=== PATIENT | female | born 1960 | race Caucasian/White ===

== ENCOUNTER 2017-01-07 09:34 | Inpatient (IN) ==
--- NOTE | 2017-01-07 10:00 | EKG Report ---
Test Performed on : 01/07/2017 09:39:00 AM Test Reason : chest pain Blood Pressure : / mmHG Vent. Rate : 095 BPM Atrial Rate : 095 BPM P-R Int : 150 ms QRS Dur : 110 ms QT Int : 390 ms P-R-T Axes : 078 -78 079 degrees QTc Int : 490 ms Normal sinus rhythm. Biatrial enlargement Left axis deviation Incomplete right bundle branch block Septal infarct , age undetermined Abnormal ECG No previous ECGs available Unconfirmed Result
[2017-01-07] MEDS ORDERED: ASPIRIN PO STA (10:09)
[2017-01-07 10:26] LABS: MANUAL DIFF NEEDED? NO
[2017-01-07 10:32] LABS: BASO% 0.4 % (0.0-0.8); EOS# 0.07 X1000 (0.0-0.7); EOS% 0.9 % (0.0-10.0); HEMATOCRIT 48.2 % (37.0-47.0); HEMOGLOBIN 16.7 g/dL (12.0-16.0); LYMPH# 1.81 X1000 (1.2-3.4); LYMPH% 22.5 % (20.5-51.1); MCH 32.8 PG (27-31); MCHC 34.6 g/dL (33-37); MCV 94.7 FL (81-99); MONO# 0.56 X1000 (0.11-0.59); MONO% 6.9 % (1.7-9.3); MPV 9.8 FL (7.4-10.4); NEUT% 69.3 % (42.2-75.2); PLT 221 X1000 (130-400); RBC 5.09 XMIL (4.2-5.4)
--- NOTE | 2017-01-07 10:34 | Diag Imaging Result Doc PS360 ---
CHEST-PORTABLE - 01/07/2017 INDICATION: CP TECHNIQUE: COMPARISON: 05/07/2015 FINDINGS: The lungs are normally expanded and clear. Heart size and mediastinal contours are normal. No pneumothorax or pleural effusion. IMPRESSION: Negative exam. Electronically signed by Peter Real 01/07/2017 10:32 AM
[2017-01-07] MEDS ORDERED: NITROGLYCERIN SL ONE (10:39)
[2017-01-07] MEDS ORDERED: G.I. COCKTAIL ONE (10:42)
[2017-01-07 10:43] LABS: INR 1.03; PROTIME 10.8 Seconds (9.2-11.7); PTT 27.3 Seconds (22.0-36.0)
[2017-01-07] MEDS ORDERED: G.I. COCKTAIL PO ONE (10:47)
[2017-01-07 10:54] LABS: AGAP 15; ALBUMIN 4.3 g/dL (3.5-5.0); ALKALINE PHOSPHATASE 73 U/L (32-104); BUN 9 mg/dL (8-22); CALCIUM 9.4 mg/dL (8.8-10.2); CHLORIDE 95 mmol/L (98-107); CK PROFILE 59 U/L (24-173); COSMO 285; GOT 16 U/L (10-30); GPT 8 U/L (10-36); MAGNESIUM 1.6 mg/dL (1.5-2.7); POTASSIUM 4.3 mmol/L (3.5-5.1); SODIUM 137 mmol/L (136-145); TCO2 27 mmol/L (25-35); TOTAL PROTEIN 7.4 g/dL (6.3-8.3)
[2017-01-07 12:29] LABS: URINE CULTURE NEEDED? NO; URINE MICRO REVIEW NEEDED? NO; URINE SOURCE CLEAN CATCH
[2017-01-07 12:37] LABS: UR EPITHELIAL CELLS <10 /HPF (<10); URINE BACTERIA NEGATIVE /HPF; URINE RBC <10 /HPF (<10); URINE WBC <10 /HPF (<10)
[2017-01-07 12:49] LABS: UR AMPHETAMINES QUAL NONE DETECTED (NONE DETECT); UR BARBITUATES QUAL NONE DETECTED (NONE DETECT); UR BENZODIAZEPIN QUAL NONE DETECTED (NONE DETECT); UR CANNABINOIDS QUAL NONE DETECTED (NONE DETECT); UR COCAINE QUAL NONE DETECTED (NONE DETECT); UR METHADONE QUAL NONE DETECTED (NONE DETECT); UR OPIATES QUAL NONE DETECTED (NONE DETECT); UR OXYCODONE QUAL NONE DETECTED (NONE DETECT); UR PCP QUAL NONE DETECTED (NONE DETECT)
[2017-01-07 12:53] LABS: BILIRUBIN URINE NEGATIVE (NEGATIVE); BLOOD URINE NEGATIVE (NEGATIVE); COLOR YELLOW; GLUCOSE URINE >1000 mg/dL (NEGATIVE); LEUKOCYTES URINE NEGATIVE (NEGATIVE); NITRITE URINE NEGATIVE (NEGATIVE); PH URINE 6.5; PROTEIN URINE NEGATIVE (NEGATIVE); TURBIDITY URINE CLEAR (CLEAR); UROBILINOGEN URINE NORMAL (NORMAL)
--- NOTE | 2017-01-07 13:26 | ED EKG INTERP ---
This chart was entered by Dai Saunders Scribe, acting as scribe for Jase Perdomo MD. EKG Interpretation - EKG Time of EKG reading by physician:: 09:39 EKG Read and Signed by:: Jase Perdomo EKG Interpretation (*Must complete 3 of following elements*): Abnormal Rate: 95 Rhythm: nsr [employer]: left (deviation) QRS: RBB (incomplete) ST Wave: normal Comments: septal infarct This chart was documented by the indicated scribe, (Dai Saunders Scribe) and accurately reflects the services I performed and decisions made by meConor Wenli X, MD, as attested by the provider's signature.
[2017-01-07] MEDS ORDERED: ZOFRAN IV ONE (13:27)
[2017-01-07] MEDS ORDERED: MORPHINE IV ONE (13:27)
--- NOTE | 2017-01-07 13:30 | PROVIDER DOCUMENTATION ---
This chart was entered by Dai Saunders Scribe, acting as scribe for Jase Perdomo MD. HPI-Chest Pain - General Chief Complaint: Chest Pain Stated Complaint: cp Time Seen by Provider: 01/07/17 10:07 Source: patient Allergies/Adverse Reactions: Patient Allergies Allergy/AdvReac Type Severity Reaction Status Date / Time Sulfa (Sulfonamide Allergy Unknown Verified 05/07/15 12:51 Antibiotics) Home Medications: Home Medication List Medication Instructions Recorded Confirmed Last Taken Type Hydrocodone/APAP 5 mg/325 mg 1 each PO Q6H PRN PRN #14 tablet 05/07/15 01/07/17 Unknown Rx [[place]-5] - History of Present Illness-CP Nature of Presenting Problem: 56 y/o F presents to ED cc of substernal chest pain. Pt states this onset yesterday afternoon. Pt states this morning the pain started radiating up R jaw. Pt states yesterday she did have a stressful day at work. Pt reports [place] runs in the family. Pt states this am she became nauseated and SOB. Pt denies any ABD PAIN/ GERD/ VOMITING. Pt is alert and oriented. Pt has no history of cardiac. Location: reports: substernal Chest Pain Radiation: reports: jaw (R) Quality of Pain: reports: aching Severity in ED: mild Onset/Duration: just prior to arrival Timing: gone now (on exam) Context/Activities at Onset: reports: light activity Modifying Factors: improves with: analgesics Associated Symptoms: reports: nausea, shortness of breath. denies: abdominal pain, back pain, fever/chills, headache, syncope, vomiting Nitro Today/Relief: provided by ED Aspirin Treatment Today: provided by ED Prior Chest Pain/Cardiac Workup: reports: no prior chest pain, no prior cardiac workup Similar Symptoms Previously?: No Recently Seen Here or By Another Healthcare Provider: No Review of Systems - Adult - REVIEW OF SYSTEMS - ADULT Constitutional: denies: chills, fever Ears, Nose, Mouth & Throat: denies: ear pain, nose pain Cardiovascular: reports: chest pain. denies: palpitations Respiratory: reports: chronic cough, shortness of breath. denies: pleurisy, wheezing Gastrointestinal: reports: nausea. denies: abdominal pain, diarrhea, vomiting Genitourinary: denies: dysuria, discharge, frequency, hematuria Musculoskeletal: denies: bone pain, back pain Neurological: denies: dizziness/vertigo, headache/migraines Past History - Adult - PAST MEDICAL HISTORY-ADULT Review of Records: reports: Old Records Reviewed, Nursing Assessment Review Cardiovascular: reports: HTN - IMMUNIZATION STATUS Childhood Immunizations: See Nurse Assessment Flu Vaccine: See Nurse Assessment - FAMILY HISTORY Family History: reviewed, not pertinent - SOCIAL HISTORY Smoking: greater than 1 pack/day Provider spent 3-5 mins advising pt. on dangers of tobacco.: Discussed manners to quit use, and f/u contacts for add'l counseling. Substance Use: denies Physical Exam-General - PHYSICAL EXAM-ADULT Initial Vital Signs Reviewed: Yes - CONSTITUTIONAL General Appearance: appears well, alert, thin - EYES Eyes: pink conjunctivae - HEAD, EARS, NOSE, MOUTH & THROAT HENMT: moist mucous membranes, normal ENT inspection - NECK Neck: non-tender - RESPIRATORY Respiratory: chest non-tender, lungs clear, normal breath sounds - CARDIOVASCULAR Cardiovascular: normal peripheral pulses, no edema, no gallop, no JVD, no murmur , tachycardia - GASTROINTESTINAL (ABDOMEN) Abdominal Exam: normal bowel sounds, non tender, soft - LYMPHATIC Lymphatic: no adenopathy - MUSCULOSKELETAL Back Exam: no CVA tenderness, no vertebral tenderness Extremity: normal range of motion, non-tender, normal gait - SKIN Integumentary: normal color, normal turgor, warm/dry - NEUROLOGIC Neurologic: grossly normal, no motor/sensory deficits. negative: facial droop, focal weakness, motor weakness - PSYCHIATRIC Psych/Mental Status: oriented x 3 Progress - PLAN OF CARE/RESULTS Progress/Plan/Lab Results: Vital Signs - 8 hr 01/07/17 09:49 01/07/17 11:00 Temperature 97.8 F Pulse Rate 99 H 90 Respiratory Rate 20 24 Blood Pressure 162/95 137/85 O2 Sat by Pulse Oximetry 100 95 Laboratory Results - last 24 hr 01/07/17 01/07/17 01/07/17 10:09 10:09 10:09 WBC 8.06 RBC 5.09 Hgb 16.7 H Hct 48.2 H MCV 94.7 MCH 32.8 H MCHC 34.6 RDW Std Deviation 12.1 Plt Count 221 MPV 9.8 Immature Gran % (Auto) 0.0 Neut % (Auto) 69.3 Lymph % (Auto) 22.5 [place] % (Auto) 6.9 Eos % (Auto) 0.9 Baso % (Auto) 0.4 Immature Gran # (Auto) 0.00 Neut # (Auto) 5.59 Lymph # (Auto) 1.81 [place] # (Auto) 0.56 Eos # (Auto) 0.07 Baso # (Auto) 0.03 PT INR PTT (Actin FS) D-Dimer 0.16 Sodium 137 Potassium 4.3 Chloride 95 L Carbon Dioxide 27 Anion Gap 15 BUN 9 Creatinine 0.6 Estimated GFR/1.73 m2 > 60 BUN/Creatinine Ratio 15 Glucose 319 H Calculated Osmolality 285 Calcium 9.4 Magnesium 1.6 Total Bilirubin 0.70 AST 16 ALT 8 L Alkaline Phosphatase 73 Creatine Kinase 59 Troponin T Cfl-C-Cagfmrvwlfc Pept Total Protein 7.4 Albumin 4.3 Globulin 3.1 Albumin/Globulin Ratio 1.4 Urine Source Urine Color Urine Turbidity Urine pH Ur Specific [place] Urine Protein Ur Glucose (Stick) Ur Ketones (Stick) Urine Blood Urine Nitrite Urine Bilirubin Urobilinogen Dipstick Urine Leukocytes Urine WBC (Auto) Urine RBC (Auto) U Epithel Cells (Auto) Urine Bacteria (Auto) Urine Opiates Screen Ur Oxycodone Screen Ur Methadone, Qual Ur Barbiturates Screen Ur Phencyclidine Scrn Ur Amphetamines Screen U Benzodiazepines Scrn Urine Cocaine Screen U Cannabinoids Screen 01/07/17 01/07/17 01/07/17 10:09 10:09 10:09 WBC RBC Hgb Hct MCV MCH MCHC RDW Std Deviation Plt Count MPV Immature Gran % (Auto) Neut % (Auto) Lymph % (Auto) [place] % (Auto) Eos % (Auto) Baso % (Auto) Immature Gran # (Auto) Neut # (Auto) Lymph # (Auto) [place] # (Auto) Eos # (Auto) Baso # (Auto) PT 10.8 INR 1.03 PTT (Actin FS) 27.3 D-Dimer Sodium Potassium Chloride Carbon Dioxide Anion Gap BUN Creatinine Estimated GFR/1.73 m2 BUN/Creatinine Ratio Glucose Calculated Osmolality Calcium Magnesium Total Bilirubin AST ALT Alkaline Phosphatase Creatine Kinase Troponin T 0.020 Npa-E-Ezpexgkyhcj Pept 443 H Total Protein Albumin Globulin Albumin/Globulin Ratio Urine Source Urine Color Urine Turbidity Urine pH Ur Specific [place] Urine Protein Ur Glucose (Stick) Ur Ketones (Stick) Urine Blood Urine Nitrite Urine Bilirubin Urobilinogen Dipstick Urine Leukocytes Urine WBC (Auto) Urine RBC (Auto) U Epithel Cells (Auto) Urine Bacteria (Auto) Urine Opiates Screen Ur Oxycodone Screen Ur Methadone, Qual Ur Barbiturates Screen Ur Phencyclidine Scrn Ur Amphetamines Screen U Benzodiazepines Scrn Urine Cocaine Screen U Cannabinoids Screen 01/07/17 01/07/17 01/07/17 12:18 12:18 12:18 WBC RBC Hgb Hct MCV MCH MCHC RDW Std Deviation Plt Count MPV Immature Gran % (Auto) Neut % (Auto) Lymph % (Auto) [place] % (Auto) Eos % (Auto) Baso % (Auto) Immature Gran # (Auto) Neut # (Auto) Lymph # (Auto) [place] # (Auto) Eos # (Auto) Baso # (Auto) PT INR PTT (Actin FS) D-Dimer Sodium Potassium Chloride Carbon Dioxide Anion Gap BUN Creatinine Estimated GFR/1.73 m2 BUN/Creatinine Ratio Glucose Calculated Osmolality Calcium Magnesium Total Bilirubin AST ALT Alkaline Phosphatase Creatine Kinase 77 Troponin T Jhh-P-Ventdprjfbh Pept Total Protein Albumin Globulin Albumin/Globulin Ratio Urine Source CLEAN CATCH Urine Color YELLOW Urine Turbidity CLEAR Urine pH 6.5 Ur Specific [place] 1.040 Urine Protein NEGATIVE Ur Glucose (Stick) >1000 A Ur Ketones (Stick) 80 A Urine Blood NEGATIVE Urine Nitrite NEGATIVE Urine Bilirubin NEGATIVE Urobilinogen Dipstick NORMAL Urine Leukocytes NEGATIVE Urine WBC (Auto) <10 Urine RBC (Auto) <10 U Epithel Cells (Auto) <10 Urine Bacteria (Auto) NEGATIVE Urine Opiates Screen NONE DETECTED Ur Oxycodone Screen NONE DETECTED Ur Methadone, Qual NONE DETECTED Ur Barbiturates Screen NONE DETECTED Ur Phencyclidine Scrn NONE DETECTED Ur Amphetamines Screen NONE DETECTED U Benzodiazepines Scrn NONE DETECTED Urine Cocaine Screen NONE DETECTED U Cannabinoids Screen NONE DETECTED 01/07/17 12:18 WBC RBC Hgb Hct MCV MCH MCHC RDW Std Deviation Plt Count MPV Immature Gran % (Auto) Neut % (Auto) Lymph % (Auto) [place] % (Auto) Eos % (Auto) Baso % (Auto) Immature Gran # (Auto) Neut # (Auto) Lymph # (Auto) [place] # (Auto) Eos # (Auto) Baso # (Auto) PT INR PTT (Actin FS) D-Dimer Sodium Potassium Chloride Carbon Dioxide Anion Gap BUN Creatinine Estimated GFR/1.73 m2 BUN/Creatinine Ratio Glucose Calculated Osmolality Calcium Magnesium Total Bilirubin AST ALT Alkaline Phosphatase Creatine Kinase Troponin T 0.045 D Djt-P-Nxfmofqryml Pept Total Protein Albumin Globulin Albumin/Globulin Ratio Urine Source Urine Color Urine Turbidity Urine pH Ur Specific [place] Urine Protein Ur Glucose (Stick) Ur Ketones (Stick) Urine Blood Urine Nitrite Urine Bilirubin Urobilinogen Dipstick Urine Leukocytes Urine WBC (Auto) Urine RBC (Auto) U Epithel Cells (Auto) Urine Bacteria (Auto) Urine Opiates Screen Ur Oxycodone Screen Ur Methadone, Qual Ur Barbiturates Screen Ur Phencyclidine Scrn Ur Amphetamines Screen U Benzodiazepines Scrn Urine Cocaine Screen U Cannabinoids Screen Orders Category Date Time Status Cardiac Monitoring DIRECTED Care 01/07/17 10:09 Active Saline Loc NOW Care 01/07/17 10:09 Active CHEST-PORTABLE [RAD] Stat Exams 01/07/17 10:09 Completed CBC WITH ELECTRONIC DIFF [HEME] Stat Lab 01/07/17 10:09 Completed CK PROFILE [SP CHEM] Stat Lab 01/07/17 10:09 Completed CK PROFILE [SP CHEM] Stat Lab 01/07/17 12:18 Completed COMPREHENSIVE METABOLIC PANEL [CHEM] Stat Lab 01/07/17 10:09 Completed D-DIMER [CHEM] Stat Lab 01/07/17 10:09 Completed MAGNESIUM [CHEM] Stat Lab 01/07/17 10:09 Completed PRO B-NATRIURETIC PEPTIDE Stat Lab 01/07/17 10:09 Completed PROTIME WITH INR [COAG] Stat Lab 01/07/17 10:09 Completed PTT [COAG] Stat Lab 01/07/17 10:09 Completed TROPONIN T Stat Lab 01/07/17 10:09 Completed TROPONIN T Stat Lab 01/07/17 12:18 Completed UA NIMS W/REFLEX CULT [URINALYSIS] Stat Lab 01/07/17 12:18 Completed URINE DRUG SCREEN Stat Lab 01/07/17 12:18 Completed Aspirin Med 01/07/17 10:09 Discontinued 325 mg PO STAT STA Lido/Patiño Alk/Al&mg Hydrox [G.i. Cocktail] Med 01/07/17 10:42 Discontinued 30 ml .ROUTE .STK-MED ONE Lido/Patiño Alk/Al&mg Hydrox [G.i. Cocktail] Med 01/07/17 10:47 Discontinued 30 ml PO NOW ONE Nitroglycerin Sl [Nitroglycerin] Med 01/07/17 10:39 Discontinued 0.4 mg SL NOW ONE EKG [EKG] Stat Ther 01/07/17 09:41 Active EKG [EKG] Stat Ther 01/07/17 10:09 Draft [PLAN: LABS , EKG, MONITOR PT. Result Diagrams: 01/07/17 10:09 01/07/17 10:09 - REASSESSMENT Reassessment #1 Time Reassessed: 13:27 Status: unchanged (Pt still c/o retrosternal pain after GI cocktail. IV Morphine ordered. Will admit.) - XRAY 1 XRAY: Bilateral XRAY Study: Chest Impression: Normal XRAY Interpretation: NEGATIVE EXAM -Dr. Real(radiologist) - CONSULTS/PCP/HOSPITALIST Notification Time Discussed: 13:28 Reason/Comments: Admit to hospitalist Consult Disposition: Admit Departure - Departure Time of Disposition Decision: 13:29 DIAGNOSIS: Chest pain Qualifiers: Chest pain type: unspecified Qualified Code(s): R07.9 - Chest pain, unspecified Disposition: ADMITTED INPATIENT 09 Certified Medical Emergency: Emergent Condition: Stable Referrals and Follow-Ups: None,PCP [Primary Care Provider] - - Critical Care Note This patient required my direct & personal management of CC.: No This chart was documented by the indicated scribe, (Dai Saunders Scribe) and accurately reflects the services I performed and decisions made by me, Jase Perdomo MD, as attested by the provider's signature.
[2017-01-07] MEDS ORDERED: NITROGLYCERIN TOP ONE (15:46)
[2017-01-07] MEDS ORDERED: APRESOLINE IV PRN (16:09)
[2017-01-07] MEDS ORDERED: TYLENOL PO PRN (16:09)
[2017-01-07] MEDS ORDERED: LOVENOX SUBQ SCH (16:09)
[2017-01-07] MEDS ORDERED: ZOFRAN IV PRN ×2 (16:09)
[2017-01-07 16:21] LABS: HEMOGLOBIN A1C 12.1 % (4.8-6.0)
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
[2017-01-07 17:57] LABS: CK INDEX 7.5 (0.0-2.5); CK-MB 23.02 ng/mL (0.0-5.0)
[2017-01-07] MEDS: PROTONIX IV SCH (18:07)
[2017-01-07] MEDS: M.V.I.-12 10 ML, FOLIC ACID 1 MG, MAGNESIUM SULFATE 1 GM, THIAMINE 100 MG in NS 1,000 ML IV SCH (18:07)
[2017-01-07] MEDS: SODIUM CHLORIDE 0.9% INJ SCH (18:07)
[2017-01-07] MEDS: DUONEB (A & A) INH SCH ×2 (19:36→23:09)
[2017-01-07] MEDS: HUMALOG SUBQ SCH (20:17)
[2017-01-07 22:14] LABS: CK INDEX 10.6 (0.0-2.5); CK-MB 62.11 ng/mL (0.0-5.0)
[2017-01-07] MEDS: ATIVAN IV PRN (23:43)
[2017-01-08 02:13] LABS: CK INDEX 10.4 (0.0-2.5); CK-MB 81.94 ng/mL (0.0-5.0)
[2017-01-08] MEDS: NS 1,000 ML IV SCH ×3 (03:00→19:15)
[2017-01-08] MEDS: DUONEB (A & A) INH SCH ×6 (03:52→23:38)
[2017-01-08 06:38] LABS: HEMATOCRIT 46.2 % (37.0-47.0); HEMOGLOBIN 15.8 g/dL (12.0-16.0); MCH 32.9 PG (27-31); MCHC 34.2 g/dL (33-37); MCV 96.3 FL (81-99); MPV 10.1 FL (7.4-10.4); RBC 4.8 XMIL (4.2-5.4)
[2017-01-08] MEDS: HUMALOG SUBQ SCH ×4 (06:44→20:11)
[2017-01-08] MEDS ORDERED: PRILOSEC PO SCH (07:00)
[2017-01-08 07:11] LABS: AGAP 16; BUN 10 mg/dL (8-22); CALCIUM 8.5 mg/dL (8.8-10.2); CHLORIDE 96 mmol/L (98-107); COSMO 278; POTASSIUM 3.8 mmol/L (3.5-5.1); SODIUM 135 mmol/L (136-145); TCO2 23 mmol/L (25-35)
[2017-01-08] MEDS ORDERED: LIPITOR PO ONE (07:31)
[2017-01-08] MEDS ORDERED: INSULIN PEN NEEDLES ONE (07:49)
[2017-01-08] MEDS: ASPIRIN PO SCH (08:18)
[2017-01-08] MEDS: LOPRESSOR PO SCH ×2 (08:19→20:12)
[2017-01-08] MEDS: LOVENOX SUBQ SCH ×2 (08:21→18:32)
[2017-01-08] MEDS: M.V.I.-12 10 ML, FOLIC ACID 1 MG, MAGNESIUM SULFATE 1 GM, THIAMINE 100 MG in NS 1,000 ML IV SCH (08:22)
[2017-01-08] MEDS ORDERED: LANTUS SUBQ SCH (09:00)
--- NOTE | 2017-01-08 13:51 | CONSULTATION ---
DATE OF CONSULTATION: 01/08/2017 INDICATION: Chest pain. HISTORY OF PRESENT ILLNESS: Ms. Gómez is a 56-year-old, white female, who has a history of tobacco use and hypertension who is currently not following with a primary care physician. She had an episode of chest discomfort which she described as an indigestion-type burning pain in the central chest area with radiation up into the right jaw. This began during a period of stress yesterday, but this was emotional stress and not physical stress. She was sedentary. Initially, she attempted to take a spoonful of mustard. This helped to the discomfort briefly for a few minutes. This helped the discomfort briefly for a few minutes. It resumed and then she took some antacids. Again, she had a brief resolution, but it persisted until she got to the ER after that. Subsequently, she has not had any other issues with chest pain since presentation. She is not short of breath. She continues to smoke and has a significant history of alcohol use. PAST MEDICAL HISTORY: 1. Significant for hypertension. 2. Tobacco abuse. 3. Alcohol abuse. SOCIAL HISTORY: She smokes around a pack a day, drinks around a pint of liquor. She is . is present. FAMILY HISTORY: She has a history of myocardial infarctions in both parents in mid 40s. REVIEW OF SYSTEMS: Ten system review of systems is negative except for those mentioned in the HPI. PHYSICAL EXAMINATION: Vital Signs: She is afebrile. Her heart rate has been anywhere from the 70s to the low 100s. Her blood pressure is 106/74. General: She is in no acute distress. HEENT: Oropharynx is moist. Normal dentition. Eye examination shows pink conjunctivae. White sclerae. Neck: Examination shows no obvious thyromegaly or thyroid tenderness. Cardiovascular: She is in a regular rate and rhythm. She has no murmurs. She has no S3. She has no lower extremity edema. Chest: Chest exam is clear bilaterally. No increased work of breathing. Abdomen: Soft, nontender, nondistended. She has no obvious organomegaly. Skin Exam: Warm and dry throughout any rashes. Neurological: She is moving all extremities well. Cranial nerves 2- 12 are intact without any sensation deficits. Psychiatric: Alert, oriented, and pleasant. She has normal mood and affect. PERTINENT DATA: She had an EKG checked at 9:39 a.m. yesterday showing sinus rhythm. No acute ischemic changes. She had a chest x-ray showing no acute processes. Her laboratory data has shown a white count of 9.2, hematocrit 46, platelet count 211,000. Sodium 135, potassium 3.8. Her BUN is 10, creatinine 0.5. Her glucose was 319 on presentation. Her A1c was 12.1. Troponin initially was 0.02 and subsequently has trended up to a peak of 2.34 this morning. Her albumin is 4.3. TSH is normal. ASSESSMENT: 1. Dld-XJ-imbehdzkq myocardial infarction. 2. New onset diabetes. 3. Hypertension. 4. Tobacco and alcohol abuse. PLAN: The patient has been counseled against tobacco and alcohol cessation. I agree with the medication she is currently on including the 1 mg/per kg Lovenox, aspirin, atorvastatin, metoprolol. I would continue on these medications presently as she seems to be pain free. We will plan for cardiac catheterization in the morning on Tuesday. Risks, benefits and alternatives explained to the patient. She agrees to proceed. Echocardiogram is currently pending. cc: Sami Easton MD
--- NOTE | 2017-01-08 14:56 | PROGRESS NOTE ---
DATE: 01/08/2017 SUBJECTIVE: This patient states that she is feeling better. She is a little bit anxious. She denies nausea, vomiting, diarrhea, constipation. Mild chest discomfort. OBJECTIVE: Vital Signs: Temperature 97.7 degrees, pulse 113, respiratory rate 20, blood pressure 113/78, oxygen saturation 98% on room air. HEENT: Head normocephalic. No trauma. PERRLA. Neck: Supple. No JVD. No masses. Central trachea. Chest: Clear to auscultation. No wheezing. No rales. Abdomen: Soft, nontender, nondistended. No hepatosplenomegaly. Cardiovascular: RRR. No murmurs. Extremities: No edema. No clubbing. No cyanosis. Neurological: The patient is alert and oriented x3. No focal deficits. LABORATORY: WBC 9.2, hemoglobin 15.8, hematocrit 46.2, platelets 211,000. Sodium 135, potassium 3.8, chloride 96, bicarbonate 23, BUN 10, creatinine 0.5, glucose 249, calcium 8.5. CK-MB 81.9. Troponin 2.3. ASSESSMENT AND PLAN: 1. Spm-IP-orwwnbxhz myocardial infarction. This patient was admitted yesterday because of chest pain and the troponin has been increasing slowly. Today, the troponins is more than 2. Cardiology Department has been consulted. We placed this patient on Lovenox twice a day, and also beta cristhian and statin. This patient is receiving also aspirin. At this moment, she looks stable. We will follow the recommendations of the Cardiology Department. 2. Hyperglycemia. We have a hemoglobin A1c that is more than 12, so this patient has uncontrolled diabetes. As per the patient, she never was told that she had diabetes, I started this patient on sliding scale insulin, pattern of blood sugar, and also I started this patient on Lantus 15. We will monitor the blood sugar. 3. Hypertension. Stable. We added beta cristhian to her medications, pending Cardiology recommendations. 4. Nicotine dependence. The patient has been highly advised to quit smoking. We have offered her a nicotine patch, but she refused. I will continue with daily cessation education. 5. Possible alcohol dependence. We will monitor closely for signs of withdrawal and have a p.r.n. Ativan. 6. Deep vein thrombosis prophylaxis. This patient is getting Lovenox twice a day. This patient is having a ade-UI-tyshxwclj myocardial infarction. The Cardiology Department has been consulted and I will try to transfer this patient to the [facility]. cc: Preet Milligan MD
--- NOTE | 2017-01-08 15:04 | ECHO REPORT ---
ORDER DATE: 01/07/2017 INDICATION FOR THE STUDY: Non ST elevation NC. FINDINGS: 1. Right atrium is normal size at 3.9 cm. 2. Trace tricuspid regurgitation. RV systolic pressure of 33. 3. Normal RV size and systolic function. 4. No significant pulmonic insufficiency. 5. Normal left atrial size at 2.9 cm. 6. No mitral prolapse. Trace mitral regurgitation. 7. Normal LV size, end-diastolic dimension of 3.5. Mild left ventricular hypertrophy with a posterior and interventricular septal wall thickness of 1.0 and 1.3 cm respectively. Normal LV systolic function. Estimated EF of 55%. On some views, there is a suggestion of mild inferolateral hypokinesis. 8. Aortic valve opens well. No evidence of stenosis or insufficiency. 9. Aorta appears normal visualized segments. 10. No pericardial effusion seen. cc: MD Eric Trujillo CRNP
[2017-01-08] MEDS: SODIUM CHLORIDE 0.9% INJ SCH (16:54)
[2017-01-08] MEDS: PROTONIX IV SCH (16:54)
[2017-01-08] MEDS: ATIVAN IV PRN (20:12)
[2017-01-09] MEDS: DUONEB (A & A) INH SCH ×6 (02:44→22:54)
[2017-01-09] MEDS: ATIVAN IV PRN ×2 (03:34→20:31)
[2017-01-09] MEDS: NS 1,000 ML IV SCH ×2 (03:34→20:32)
[2017-01-09 05:22] LABS: MANUAL DIFF NEEDED? NO
[2017-01-09 05:30] LABS: BASO% 0.3 % (0.0-0.8); EOS# 0.09 X1000 (0.0-0.7); EOS% 1.2 % (0.0-10.0); HEMATOCRIT 40.3 % (37.0-47.0); HEMOGLOBIN 13.7 g/dL (12.0-16.0); LYMPH# 1.91 X1000 (1.2-3.4); LYMPH% 25.9 % (20.5-51.1); MCH 32.5 PG (27-31); MCV 95.7 FL (81-99); MONO# 0.84 X1000 (0.11-0.59); MONO% 11.4 % (1.7-9.3); MPV 10.1 FL (7.4-10.4); NEUT% 61.2 % (42.2-75.2); PLT 179 X1000 (130-400); RBC 4.21 XMIL (4.2-5.4)
[2017-01-09 06:05] LABS: HDL 46 mg/dL (45-65); LDL 68 mg/dL; TRIGLYCERIDES 76 mg/dL (35-135); VLDL 15 mg/dL
[2017-01-09 06:07] LABS: AGAP 13; BUN 9 mg/dL (8-22); CALCIUM 8.4 mg/dL (8.8-10.2); CHLORIDE 102 mmol/L (98-107); COSMO 278; SODIUM 137 mmol/L (136-145); TCO2 22 mmol/L (25-35)
[2017-01-09] MEDS: LOVENOX SUBQ SCH ×3 (06:17→20:31)
[2017-01-09] MEDS: HUMALOG SUBQ SCH ×4 (06:17→21:51)
--- NOTE | 2017-01-09 09:20 | PROGRESS NOTE ---
DATE: 01/09/2017 SUBJECTIVE: This patient states that she is feeling fine. She is not complaining of chest pain at this moment. Family members at the bedside. OBJECTIVE: Vital Signs: Temperature 98.4 degrees, pulse 82, respiratory rate 16, blood pressure 100/70, oxygen saturation 100% on room air. HEENT: Head normocephalic. No trauma. PERRLA. Neck: Supple. No JVD. No masses. Central trachea. Chest: Clear to auscultation. No wheezing. No rales. Cardiovascular: RRR. No murmurs. Abdomen: Soft, nontender, nondistended. No hepatosplenomegaly. Extremities: No edema. No clubbing. No cyanosis. Neurological Examination: The patient is alert and oriented x3. No focal deficits. Laboratory Data: WBC 7.3, hemoglobin 13.7, hematocrit 40.3, platelets 179,000. Sodium 137, potassium 4, chloride 102, bicarbonate 22, BUN 9, creatinine 0.5, glucose 205, calcium 8.4, magnesium 1.5. ASSESSMENT AND PLAN: 1. Non-ST elevation myocardial infarction. This patient was admitted a couple days ago because of chest pain and the troponins have been increasing. Cardiology department evaluated this patient and they will do a cardiac catheterization on Tuesday. This patient has been placed nothing per oral after midnight. 2. Type 2 diabetes with a hemoglobin A1c greater than 12. The blood sugar is a little bit elevated today at 206. She received a little bit more, 30 units of sliding scale insulin. I will increase the Lantus from 15 to 30, and I will continue to monitor the blood sugar. 3. Hypertension, stable. Continue with the same medications. 4. Nicotine dependence and possible alcohol dependence. This patient has been highly advised about quitting these products. We will continue with daily cessation education. 5. Deep vein thrombosis prophylaxis. This patient is getting Lovenox twice a day because of the non-ST elevation myocardial infarction. CRITICAL CARE TIME: 35 minutes. cc: Preet Milligan MD
[2017-01-09] MEDS: M.V.I.-12 10 ML, FOLIC ACID 1 MG, MAGNESIUM SULFATE 1 GM, THIAMINE 100 MG in NS 1,000 ML IV SCH (09:55)
[2017-01-09] MEDS: LANTUS SUBQ SCH (09:56)
[2017-01-09] MEDS: LOPRESSOR PO SCH ×2 (09:56→20:31)
[2017-01-09] MEDS: ASPIRIN PO SCH (09:56)
[2017-01-09] MEDS: NICODERM PATCH TD SCH (09:59)
--- NOTE | 2017-01-09 13:48 | PROGRESS NOTE ---
DATE: 01/09/2017 SUBJECTIVE: She has not had any episodes of chest pain overnight. PHYSICAL EXAMINATION: Vital signs: She is afebrile. Heart rate of 78, blood pressure 103/68. General: No acute distress. Cardiovascular: She is in a regular rate and rhythm. She has no murmurs, no S3. She has no lower extremity edema. Chest: Clear bilaterally. No increased work of breathing. Abdomen: Soft, nontender, nondistended. No obvious organomegaly. PERTINENT DATA: Her troponin peaked at 3.86. Her white count is 7.4, hematocrit 40, platelet count is 179,000. Sodium 137, potassium 4, BUN 9, creatinine 0.5, magnesium level is 1.5. LDL is 68 with an HDL 46. ASSESSMENT: Non ST-elevation myocardial infarction. PLAN: We will proceed with left heart catheterization in the morning. Risks, benefits, and alternatives have been explained to the patient. She is on a statin, aspirin and beta-cristhian. Her blood pressure is not conducive to initiation of an EMELINA or an ARB at this time. She has been made n.p.o. after midnight. I will ensure she has routine labs ordered for the morning. I will replete her magnesium if this has not already been done. cc: Sami Easton MD
[2017-01-09] MEDS: SODIUM CHLORIDE 0.9% INJ SCH (16:29)
[2017-01-09] MEDS: PROTONIX IV SCH (16:29)
[2017-01-09] MEDS: LIPITOR PO SCH (20:31)
[2017-01-10] MEDS: DUONEB (A & A) INH SCH ×5 (02:48→18:56)
--- NOTE | 2017-01-10 05:39 | EKG Report ---
Test Performed on : 01/07/2017 11:05:51 PM Test Reason : Elevated Troponin Blood Pressure : / mmHG Vent. Rate : 088 BPM Atrial Rate : 088 BPM P-R Int : 154 ms QRS Dur : 094 ms QT Int : 402 ms P-R-T Axes : 077 -84 079 degrees QTc Int : 486 ms Normal sinus rhythm. Possible Left atrial enlargement Left axis deviation Incomplete right bundle branch block Nonspecific ST and T wave abnormality Prolonged QT Abnormal ECG When compared with ECG of 07-JAN-2017 09:39, QRS duration has decreased Criteria for Septal infarct are no longer present Confirmed by Alfonso Cartagena MD ([id number]) on 01/10/2017 10:54:38 AM
[2017-01-10 05:46] LABS: HEMATOCRIT 39.5 % (37.0-47.0); HEMOGLOBIN 13.2 g/dL (12.0-16.0); MCH 33.2 PG (27-31); MCHC 33.4 g/dL (33-37); MCV 99.2 FL (81-99); MPV 10.5 FL (7.4-10.4); RBC 3.98 XMIL (4.2-5.4)
[2017-01-10 06:04] LABS: AGAP 14; BUN 9 mg/dL (8-22); CALCIUM 8.6 mg/dL (8.8-10.2); CHLORIDE 101 mmol/L (98-107); COSMO 283; POTASSIUM 3.6 mmol/L (3.5-5.1); SODIUM 138 mmol/L (136-145); TCO2 23 mmol/L (25-35)
[2017-01-10] MEDS: LOVENOX SUBQ SCH ×3 (06:25→21:45)
[2017-01-10] MEDS: HUMALOG SUBQ SCH ×4 (06:25→21:13)
[2017-01-10] MEDS ORDERED: PNEUMOVAX 23 IM ONE (06:59)
[2017-01-10] MEDS ORDERED: HEPARIN 1000 UNITS/NS 2,000 UNIT/1,000 ML IV.SOLN ONE (08:22)
[2017-01-10] MEDS: LOPRESSOR PO SCH ×2 (08:40→21:18)
[2017-01-10] MEDS: NICODERM PATCH TD SCH (08:40)
[2017-01-10] MEDS: M.V.I.-12 10 ML, FOLIC ACID 1 MG, MAGNESIUM SULFATE 1 GM, THIAMINE 100 MG in NS 1,000 ML IV SCH (08:40)
[2017-01-10] MEDS: ASPIRIN PO SCH (08:40)
[2017-01-10] MEDS: LANTUS SUBQ SCH (08:41)
[2017-01-10] MEDS ORDERED: VERSED ONE (10:14)
[2017-01-10] MEDS ORDERED: MORPHINE ONE (10:14)
[2017-01-10] MEDS ORDERED: NS 1,000 ML ONE (10:21)
[2017-01-10] MEDS ORDERED: MAALOX PLUS LIQUID PO PRN (11:36)
[2017-01-10] MEDS: NS 1,000 ML IV SCH (11:42)
[2017-01-10] MEDS ORDERED: MAGNESIUM SULFATE 2 GM/S.W.I. 2 GM/50 ML IVPB IV ONE (14:10)
--- NOTE | 2017-01-10 14:25 | PROGRESS NOTE ---
DATE: 01/10/2017 SUBJECTIVE: This patient states that she is feeling fine. She is not complaining of chest pain at this moment. She had today a cardiac cath that showed two blood vessels lesion; 1 at the level of the right coronary artery and the other 1 at the level of the circumflex. The plan is to send this patient to [place] for possible stent placement. Probably this patient will be transferred tomorrow because the hospital does not have any bed available at this moment. In the meantime, Cardiology Department is taking care of this patient. OBJECTIVE: Vital Signs: Temperature 98.8 degrees, pulse 85, respiratory rate 20, blood pressure 119/76, O2 saturation 97% on room air. HEENT: Head normocephalic. No trauma. PERRLA. Neck: Supple. No JVD. No masses. Central trachea. Chest: Clear to auscultation. No wheezing. No rales. Abdomen: Soft, nontender, nondistended. No hepatosplenomegaly. Cardiovascular: RRR. No murmurs. Extremities: No edema. No clubbing. No cyanosis. She has a right inguinal area that is covered with clean dressing with no signs of edema or bleed in that place. They did the procedure for the cardiac catheterization. LABORATORY: WBC 6.7, hemoglobin 13.2, hematocrit 39.5, platelets 146,000, sodium 138, potassium 3.6, chloride 101, bicarbonate 23, BUN 9, creatinine 0.7, glucose 260. Calcium is 8.6, magnesium 1.4. ASSESSMENT AND PLAN: 1. Non ST elevation myocardial infarction. This patient had today a cardiac cath that showed 2 lesions; at the level of the circumflex and right coronary artery. The plan is to send this patient to [facility] for stent placement. I will defer the treatment to Cardiology. 2. Type 2 diabetes with a hemoglobin A1c greater than 12. I will continue with the sliding scale insulin and pattern of blood sugar. The dose of Lantus was increased to 30. Since this patient has been NPO the whole day I will continue with the same dose and probably we will readjust depending on the blood sugar reading and sliding scale treatment. 3. Hypertension, stable. Continue with the same medication. 4. Nicotine dependence. This patient has been highly advised against tobacco use. I will continue with daily cessation education and providing nicotine patch for this patient. 5. Possible alcohol dependence. This patient is on a banana bag, continue with daily cessation education as well. As per the patient, she drinks vodka every day. 6. Deep vein thrombosis prophylaxis. Continue with the same management. CRITICAL CARE TIME: 35 minutes. cc: Preet Milligan MD
--- NOTE | 2017-01-10 14:27 | PROGRESS NOTE ---
DATE: 01/10/2017 SUBJECTIVE: Ms. Gómez reports no chest pain. She underwent her cardioversion today without any issues. She is not having any present chest discomfort. PHYSICAL EXAMINATION: Vital signs: She is afebrile. Heart rate 85, blood pressure 119/76. General: She is in no acute distress. Cardiovascular: She is in a regular rate and rhythm. She has no obvious murmurs. She has no S3 she has no lower extremity edema. Chest: Clear bilaterally. She has no increased work of breathing. Abdomen: Soft, nontender, nondistended. No obvious organomegaly. Skin: Warm and dry throughout. She had no obvious so bruits in her right groin area. PERTINENT DATA: Sodium 138, potassium 3.6, BUN 9, creatinine 0.7. Magnesium level is 1.4. Hematocrit is 39.5. ASSESSMENT: Non ST-elevation myocardial infarction. PLAN: I have repleted her magnesium. We will continue her on her beta-cristhian. She is also on atorvastatin and aspirin. She will plan on following up in [place] for planned percutaneous coronary intervention. cc: Sami Easton MD
--- NOTE | 2017-01-10 16:02 | EKG Report ---
Test Performed on : 01/10/2017 11:35:17 AM Test Reason : post cath Blood Pressure : / mmHG Vent. Rate : 067 BPM Atrial Rate : 067 BPM P-R Int : 144 ms QRS Dur : 096 ms QT Int : 424 ms P-R-T Axes : 030 -85 096 degrees QTc Int : 448 ms Normal sinus rhythm. Left axis deviation Cannot rule out Anterior infarct , age undetermined Abnormal ECG When compared with ECG of 08-JAN-2017 08:18, QT has shortened Confirmed by Alfonso Cartagena MD ([id number]) on 01/12/2017 7:15:02 AM
[2017-01-10] MEDS: PROTONIX IV SCH (17:53)
[2017-01-10] MEDS: SODIUM CHLORIDE 0.9% INJ SCH (17:53)
[2017-01-10] MEDS: ATIVAN IV PRN (21:17)
[2017-01-10] MEDS: LIPITOR PO SCH (21:18)
[2017-01-10] MEDS ORDERED: COLACE PO ONE (21:35)
[2017-01-11] MEDS: DUONEB (A & A) INH SCH ×2 (02:39→07:43)
[2017-01-11 04:55] LABS: MANUAL DIFF NEEDED? NO
[2017-01-11 04:59] LABS: BASO% 0.2 % (0.0-0.8); EOS# 0.11 X1000 (0.0-0.7); EOS% 2.1 % (0.0-10.0); HEMATOCRIT 36.9 % (37.0-47.0); HEMOGLOBIN 12.3 g/dL (12.0-16.0); LYMPH# 1.19 X1000 (1.2-3.4); LYMPH% 22.6 % (20.5-51.1); MCH 32.1 PG (27-31); MCHC 33.3 g/dL (33-37); MCV 96.3 FL (81-99); MONO# 0.52 X1000 (0.11-0.59); MONO% 9.9 % (1.7-9.3); MPV 9.8 FL (7.4-10.4); NEUT% 65.2 % (42.2-75.2); PLT 161 X1000 (130-400); RBC 3.83 XMIL (4.2-5.4)
[2017-01-11 05:11] LABS: AGAP 9; BUN 7 mg/dL (8-22); CALCIUM 8.3 mg/dL (8.8-10.2); CHLORIDE 103 mmol/L (98-107); COSMO 278; POTASSIUM 3.9 mmol/L (3.5-5.1); SODIUM 138 mmol/L (136-145); TCO2 26 mmol/L (25-35)
[2017-01-11] MEDS: HUMALOG SUBQ SCH ×2 (05:48→06:17)
[2017-01-11 07:57] VITALS: BP 117/73
[2017-01-11] MEDS: ASPIRIN PO SCH (08:42)
[2017-01-11] MEDS: NICODERM PATCH TD SCH (08:42)
[2017-01-11] MEDS: LOPRESSOR PO SCH (08:42)
--- NOTE | 2017-01-11 17:32 | DISCHARGE SUMMARY ---
ADMISSION DATE: 01/09/2017 DISCHARGE DATE: 01/11/2017 CONSULTATIONS: Dr. Sami Easton with cardiology. PERTINENT PROCEDURES: 1. Echocardiogram showed an EF of 55% suggesting a mild inferior lateral hypokinesis. 2. Left heart cath performed on 01/10/2017. Final results have not resulted. However, patient is being transferred to [facility] for cardiac stents. DISCHARGE DIAGNOSES: 1. [id number] myocardial infarction. The patient had a cardiac catheterization that showed 2 lesions at the level of the left circumflex and RCA. The patient is being transferred to [facility] for stent placement. 2. Diabetes mellitus type 2 with hemoglobin A1c greater than 12, uncontrolled. 3. Hypertension, stable. 4. Nicotine dependence. The patient was discussed smoking cessation daily as well as the means to quit. 5. Possible alcohol dependence. The patient was receiving a banana bag daily and again daily cessation of alcohol use. She drinks vodka every day. The patient was watched closely for DT. She is stable. HOSPITAL COURSE: Ms. Gómez is a 56-year-old female who carries a history of nicotine and alcohol dependence and hypertension, currently untreated. She came to the ED with chest pain that happened again the day before admission. 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 She got into a verbal altercation with a client which caused her to have some chest pain around 1430 the day prior. It was described as mid sternal and nonradiating. It was not associated with shortness of breath or nausea. The pain lasted about 10 minutes and went away on its own. She assumed it was indigestion. She had another episode around midnight where the chest pain woke her up. This pain was more severe but still midsternal, radiating up to her jaw and to her back. This episode was associated with shortness of breath and mild nausea but no vomiting. Her pain was relieved with IV morphine and a GI cocktail. In the ED she had lab and diagnostics done. EKG did not show anything acute. Lab data did show a blood sugar of 319. Her urine had greater than 1,000 glucose. Her troponins have went from 0.020 to 0.045. Chest x-ray did not show anything acute. The patient was admitted in observation status with a cardiology consult. She was started on aspirin. Got an echocardiogram. For her hypoglycemia, she was started on a sliding scale, as well as given nitroglycerin paste. Discussed daily about alcohol and nicotine cessation. She was also initiated on Lovenox 1 mg/kg, a statin, and metoprolol. She had a heart cath on Tuesday that showed 2 lesions at the level of the circumflex and the RCA. The patient will be transferred to [facility] for stent placement. VITAL SIGNS: Temperature is 98.6 degrees, heart rate 72, respirations 16, blood pressure 117/73, O2 is 99% on room air. DISPOSITION: Transferred to [facility] for stent placement. DISCHARGE TIME: 35 minutes. Dictated by HARRISON Zamora for Carlitos Romero MD cc: Carlitos Romero MD [facility]
--- NOTE | 2017-01-19 15:33 | CARDIAC CATH REPORT ---
PROCEDURE NAME: - PROCEDURE: Left heart catheterization and left ventriculography. INDICATIONS: Small non-ST elevation myocardial infarction. Entry site right femoral artery catheters used 5-Kosovan. JL4, 3DRC, and angled pigtail. TECHNIQUE: After intravenous sedation with Versed and morphine, local anesthesia with lidocaine was applied over right femoral artery. Arterial access was established with placement of a 5- Kosovan sheath in right femoral artery using modified Seldinger technique. Selective coronary angiography was performed, followed by left heart catheterization and left ventriculography. Upon completion of procedure, arterial sheath was removed and hemostasis facilitated with manual pressure. The patient tolerated the procedure without apparent complications. FINDINGS: Hemodynamics: Aortic pressure 123/65, left ventricular pressure 115/80, 20 on pull back Left ventricle: The left ventricle is of normal size, without focal wall motion abnormality on SCOTT projection. Estimated left ejection fraction approximately 50%. There is no significant mitral regurgitation. Left main coronary: Left main coronary is free of significant coronary stenosis. Left anterior descending coronary: Left anterior descending coronary demonstrates a mild (30 to 40%) segmental narrowing at mid-vessel. Left circumflex coronary: Left circumflex coronary demonstrates a severe (greater 95%) focal stenosis proximally. The left circumflex coronary is a relatively small vessel, giving rise to a single obtuse marginal. Right coronary: The dominant right coronary demonstrates a severe (80%) stenosis proximally. The mid-right coronary demonstrates a moderate (50%) stenosis. CONCLUSIONS: 1. Low normal left ventricular systolic function without focal wall motion abnormality on SCOTT projection. 2. Mild elevation left ventricular end-diastolic pressure. 3. Severe 2-vessel coronary atherosclerosis including very severe stenosis and small left circumflex coronary and severe stenosis in proximal right coronary, with moderate stenosis in mid right coronary and mild stenosis in the coronary. RECOMMENDATIONS: Favor pursuit of percutaneous transluminal intervention on left circumflex coronary and right coronary. cc: Gianni Rapp MD
== END 2017-01-11 09:15 | disposition short-term general hospital (02) ==
LOC: ED 09:34 → 3N 09:34 → 3S 01-08 15:06 → SUATTDRO 01-09 14:52
PROVIDERS: ATTEND Internal Medicine